=== PATIENT | female | born 1990 | race Caucasian/White ===

== ENCOUNTER 2024-10-20 13:18 | Emergency (ER) | payer OTHER | END 2024-10-20 14:50 | disposition left against medical advice (07) | LOC: JP.ED 13:18 | DX: S01.511A Laceration without foreign body of lip, initial encounter (principal); F17.210 Nicotine dependence, cigarettes, uncomplicated; W22.8XXA Striking against or struck by other objects, initial encounter | CPT/HCPCS: 99282 ==